=== PATIENT | male | born 1975 | race African-American/Black ===

== ENCOUNTER 2020-11-20 10:40 | Emergency (ER) | payer MEDICAID, OTHER ==
[2020-11-20 10:45] VITALS: BP 0/0
[2020-11-20] MEDS ORDERED: DOPamine 1600MCG/ML D5W 250 ML IV SCH (11:15)
[2020-11-20] MEDS ORDERED: NOREPINEPHRINE 8 MG/250ML KIT 250 ML IV SCH (11:15)
[2020-11-20] MEDS ORDERED: MIDAZOLAM DRIP 50 mg/50mL 50 ML IV SCH (11:15)
[2020-11-20] MEDS ORDERED: NOREPINEPHRINE 8 MG/250ML KIT 250 ML IV ONE (11:17)
[2020-11-20] MEDS ORDERED: MIDAZOLAM DRIP 50 mg/50mL 50 ML IV ONE (11:17)
[2020-11-20 11:43] LABS: Hematocrit 11.1 % (41.0-53.0); Mean Corpuscular Hemoglobin 33.7 pg (28.0-32.0); Mean Corpuscular Hgb Conc. 31.7 g/dL (32.0-36.0); Mean Corpuscular Volume 106.2 fL (80.0-100.0); Platelet Count (auto) 93 10^3/uL (140-450); Red Blood Cells 1.04 10^6/uL (4.5-5.90); White Blood Cell 9.8 10^3/uL (4.4-10.8)
[2020-11-20 12:04] LABS: Albumin 1.1 g/dL (3.4-5.0); Calcium 7.6 mg/dL (8.5-10.1); Magnesium 3.4 mg/dL (1.6-2.6); Potassium 5.5 mmol/L (3.5-5.1)
[2020-11-20 12:10] LABS: BUN/Creatinine Ratio 16.7; Bilirubin, Total 14.3 mg/dL (0.2-1.0); Total Protein 5.2 g/dL (6.4-8.2)
[2020-11-20 12:12] LABS: Basophils % (manual) 0 (0.0-2.0); Blast Cells 0; Eosinophils % (manual) 0 (0-7); Hemoglobin 3.5 g/dL (13.5-17.5); Promyelocytes % 0; Reactive Lymphocytes 0
[2020-11-20 12:35] LABS: INR 4.31 (0.9-1.15); Partial Thromboplastin Time 98.1 sec (23.0-31.2)
[2020-11-20 14:23] LABS: Band Neutrophils % (manual) 21; Lymphocytes % (manual) 25 (10.0-50.0); Metamyelocytes % 5; Monocytes % (manual) 8 (0-12); Myelocytes % 5
== END 2020-11-20 11:30 ==
LOC: ER 10:40
DX: I46.9 Cardiac arrest, cause unspecified (principal)
CPT/HCPCS: 31500; 36415; 36556; 36600; 80053; 82805; 83605; 83735; 84484; 85007; 85027; 85379; 85610; 85730; 87040; 99285; J2250